=== PATIENT | female | born 1995 | race Caucasian/White ===

== ENCOUNTER 2017-01-27 14:01 | Emergency (ER) | payer OTHER ==
[~2017-01-27] VITALS: Ht 167.6 cm; Wt 70.8 kg
[~2017-01-27 14:01] MED LIST: METH40CA PO
[2017-01-27 14:03] VITALS: TEMP 36.7; Ht 167.6 cm; Wt 70.8 kg
[2017-01-27] MEDS ORDERED: SODIUM CHLORIDE 0.9% 1000ML 1,000 ML IV STA ×2 (14:27)
[2017-01-27] MEDS ORDERED: KETOROLAC TROMETHAMINE 30 MG/ML VIAL IV STA (14:27)
[2017-01-27] MEDS ORDERED: NORG1TAB23 PO (14:53)
[2017-01-27 14:57] LABS: BASO % 0.1 %; BASO ABS # 0.01 K/uL (0-0.2); COMPLETE YES; HEMATOCRIT 37.6 % (37-47); IG% 0.2 %; LYMPH % 26.2 %; MEAN CELL VOLUME 79.7 fL (80-100); MEAN CORPUSCULAR HEMOGLOBIN 25.2 pg (25-34); MEAN CORPUSCULAR HGB CONC 31.6 g/dl (32-36); MEAN PLATELET VOLUME 10.8 fL (7.4-10.4); MONO % 7.1 %; NEUT % 65.4 %; PLATELET COUNT 281 K/uL (130-400); RED BLOOD COUNT 4.72 M/uL (4.2-5.4)
[2017-01-27 15:15] LABS: ALT/SGPT 25 U/L (12-78); BLOOD UREA NITROGEN 7 mg/dl (7-18); BUN/CREATININE RATIO 8.5 (10-20); CALCIUM 8.9 mg/dl (8.5-10.1); CARBON DIOXIDE 29 mmol/L (21-32); CHLORIDE 105 mmol/L (98-107); CREATININE 0.86 mg/dl (0.60-1.20); GLUCOSE 106 mg/dl (70-99); SODIUM 137 mmol/L (136-145)
[2017-01-27 15:18] LABS: ALB/GLOB RATIO 0.8 (0.9-2); ALKALINE PHOSPHATASE 66 U/L (45-117)
[2017-01-27 15:21] LABS: URINE APPEARANCE CLEAR (CLEAR); URINE BILIRUBIN NEG (NEG); URINE COLOR YELLOW; URINE EPITHELIAL CELL AUTO >30 /lpf (0-5); URINE NITRITE NEG (NEG); URINE SPECIFIC GRAVITY 1.022 (1.000-1.030); UROBILINOGEN NEG (NEG)
[2017-01-27 15:23] LABS: MANUAL MICROSCOPIC REQUIRED? NO; REVIEW REQ? NO
--- NOTE | 2017-01-27 16:31 | DIAGNOSTIC IMAGING REPORT ---
(RENAL)RETROPERITON COMP HISTORY: 21 years-old Female acute pelvic pain. COMPARISON: CT abdomen and pelvis 03/06/2015 TECHNIQUE: Multiple real-time sonographic images of the kidneys and urinary bladder were obtained assessing grayscale appearance and color flow. FINDINGS: Right kidney measures 11.6 cm in length. There is mild to moderate dilation of the renal pelvis, Central and peripheral calyces appearing similar to comparison CT 03/06/2015. No obstructing renal calculi or mass identified. Renal parenchyma is otherwise unremarkable. Left kidney measures 11.9 cm in length. No renal calculi, hydronephrosis or focal mass. Cortical medullary differentiation is within normal limits. Urinary bladder is unremarkable with bilateral ureteral jets documented. IMPRESSION: 1. Bius-ic-[id number] right-sided hydronephrosis appears similar to comparison CT 03/06/2015 without obstructing stone or mass identified. This may be related to chronic UPJ stricturing or reflux. 2. Normal sonographic appearance of the left kidney and urinary bladder. The above report was generated using voice recognition software. It may contain grammatical, syntax or spelling errors. Electronically signed by: Juan Solares M.D. 01/27/2017 4:30 PM Dictated Date/Time: 01/27/2017 4:27 PM
--- NOTE | 2017-01-27 16:34 | DIAGNOSTIC IMAGING REPORT ---
PELVIC COMPLETE NON OB HISTORY: 21 years-old Female acute pelvic pain. COMPARISON: CT abdomen and pelvis 03/06/2015 TECHNIQUE: Multiple real-time sonographic images of the deep pelvic structures were obtained transabdominally and transvaginally assessing grayscale appearance, color and spectral flow. FINDINGS: TRANSABDOMINAL: Anteflexed uterus is seen, 8.2 x 3.4 x 4.1 cm. Endometrium is homogeneous, 0.6 cm. TRANSVAGINAL: Endometrium is homogeneous, 0.6 cm. No myometrial mass lesions are identified. Small nabothian cysts are seen. The right ovary measures 3.1 x 1.3 x 1.2 cm and is unremarkable with arterial inflow and venous outflow documented. Left ovary measures 2.4 x 1.3 x 1.0 cm and is also within normal limits with arterial inflow and venous outflow documented. There is no significant free pelvic fluid. IMPRESSION: Normal sonographic appearance of the uterus and ovaries. No evidence of ovarian torsion. The above report was generated using voice recognition software. It may contain grammatical, syntax or spelling errors. Electronically signed by: Juan Solares M.D. 01/27/2017 4:32 PM Dictated Date/Time: 01/27/2017 4:30 PM
[2017-01-27 16:56] LABS: POTASSIUM 3.8 mmol/L (3.5-5.1)
[2017-01-27] MEDS ORDERED: NORCO 5/325MG HOME PACK PO ONE (17:45)
[2017-01-27 17:53] VITALS: BP 135/82; PULSE 68; O2SAT 98
[2017-01-27] MEDS ORDERED: HYDR-5688 PO (17:58)
--- NOTE | 2017-01-27 18:00 | EMERGENCY ROOM VISIT NOTE ---
History First contact with patient: 14:18 Chief Complaint: URINARY SYMPTOMS Stated Complaint: ABD PAIN, BLADDER PAIN, HAD PYELOPLASTY History of Present Illness Patient is an otherwise healthy 21-year-old white female who presents to the emergency department accompanied by a female friend for evaluation of bilateral lower pelvic pain that started within the last 24 hours. 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 She underwent laparoscopic pyeloplasty at home in [place] last summer, recovery was unremarkable, and the patient has had no problems since the surgery. In the past 24 hours she has developed bilateral lower pelvic pain. She relates that it is a constant, dull pain that can become sharp and stabbing. She denies any radiation of the pain to her back or her flank. She notes some pelvic pressure with urination, but denies dysuria, frequency, urgency or hematuria. She denies fever or chills, no nausea or vomiting. She thought she may be getting a urinary tract infection and took a couple of over- the-counter cranberry pills. Patient has not tried any other medications for her symptoms. She does admit to being sexually active 2 days ago, and admits to drinking alcohol heavily yesterday. She is on an oral contraceptive, she got her menses as expected today. She denies any vaginal discharge or dyspareunia. No history of gynecologic issues or ovarian cysts. She presently rates her pain a 4/10. Review of Systems Review of systems as per HPI. All other systems reviewed were negative. 10 systems reviewed. Past Medical/Surgical History Medical Problems: (1) No known problems (2) Renal colic on right side (3) UPJ obstruction, congenital (4) Ureteral obstruction, right Surgical Problems: (1) Status post laparoscopic surgery Electronic medical records are reviewed and summarized as above/below. See Problem List. Family History Patient reports no known family medical history. Social History Smoking Status: Never Smoker Alcohol Use: occasionally Housing Status: lives with roommate Occupation Status: [employer] student Current/Historical Medications Scheduled Methylphenidate Hcl (Ritalin La), 40 MG PO QAM Norgestimate-Ethinyl Estradiol (Tri-Estarylla), 1 TAB PO DAILY Scheduled PRN Hydrocodone/Acetaminophen 5MG/325MG (Winfield 5MG/325MG), 1-2 TABLETS PO Q4 PRN for Pain Physical Exam Vital Signs Date Time Temp Pulse Resp B/P (MAP) Pulse Ox O2 Delivery O2 Flow Rate FiO2 01/27/17 17:53 68 18 135/82 98 Room Air 01/27/17 16:40 62 20 133/77 97 Room Air 01/27/17 14:03 36.7 65 16 153/97 98 Room Air Physical Exam CONSTITUTIONAL: Patient is a pleasant, well-appearing 21-year-old white female who is awake and alert and in mild distress due to her stated complaint. EYES: Pupils equal, round, reactive to light and accommodation. EOMs intact without nystagmus. Sclera are anicteric. ENT: Tympanic membranes intact, with normal landmarks. External canals are clear. Oral and nasopharynx are clear. Mucous membranes are moist, no lesions , tongue and gums appear normal. NECK: Supple without lymphadenopathy. CARDIOVASCULAR: Regular rate and rhythm, with normal S1 and S2, no murmur or gallop or rub is heard. No carotid bruits auscultated. No JVD. Peripheral pulses easily palpable. RESPIRATORY: Breath sounds equal and clear to auscultation without wheezes, rales, or rhonchi heard. Full and equal chest expansion without accessory muscle use or retractions. ABDOMEN: Bowel sounds are present. Well-healed surgical scars are noted. Abdomen is soft, scaphoid, nontender to percussion throughout, she is tender to palpation in the suprapubic region, right greater than left. No guarding or rebound. There is no pain over McBurney's point. No CVA tenderness. INTEGUMENTARY: No lesions or rash, normal skin turgor. LYMPH: No lymphadenopathy. Medical Decision & Procedures ER Provider Diagnostic Interpretation: PELVIC COMPLETE NON OB HISTORY: 21 years-old Female acute pelvic pain. COMPARISON: CT abdomen and pelvis 03/06/2015 TECHNIQUE: Multiple real-time sonographic images of the deep pelvic structures were obtained transabdominally and transvaginally assessing grayscale appearance, color and spectral flow. FINDINGS: TRANSABDOMINAL: Anteflexed uterus is seen, 8.2 x 3.4 x 4.1 cm. Endometrium is homogeneous, 0.6 cm. TRANSVAGINAL: Endometrium is homogeneous, 0.6 cm. No myometrial mass lesions are identified. Small nabothian cysts are seen. The right ovary measures 3.1 x 1.3 x 1.2 cm and is unremarkable with arterial inflow and venous outflow documented. Left ovary measures 2.4 x 1.3 x 1.0 cm and is also within normal limits with arterial inflow and venous outflow documented. There is no significant free pelvic fluid. IMPRESSION: Normal sonographic appearance of the uterus and ovaries. No evidence of ovarian torsion. (RENAL)RETROPERITON COMP HISTORY: 21 years-old Female acute pelvic pain. COMPARISON: CT abdomen and pelvis 03/06/2015 TECHNIQUE: Multiple real-time sonographic images of the kidneys and urinary bladder were obtained assessing grayscale appearance and color flow. FINDINGS: Right kidney measures 11.6 cm in length. There is mild to moderate dilation of the renal pelvis, Central and peripheral calyces appearing similar to comparison CT 03/06/2015. No obstructing renal calculi or mass identified. Renal parenchyma is otherwise unremarkable. Left kidney measures 11.9 cm in length. No renal calculi, hydronephrosis or focal mass. Cortical medullary differentiation is within normal limits. Urinary bladder is unremarkable with bilateral ureteral jets documented. IMPRESSION: 1. [id number] right-sided hydronephrosis appears similar to comparison CT 03/06/2015 without obstructing stone or mass identified. This may be related to chronic UPJ stricturing or reflux. 2. Normal sonographic appearance of the left kidney and urinary bladder. Laboratory Results 01/27/17 14:45 Red Blood Count 4.72, Mean Corpuscular Volume 79.7, Mean Corpuscular Hemoglobin 25.2, Mean Corpuscular Hemoglobin Concent 31.6, Mean Platelet Volume 10.8, Neutrophils (%) (Auto) 65.4, Lymphocytes (%) (Auto) 26.2, Monocytes (%) (Auto) 7.1, Eosinophils (%) (Auto) 1.0, Basophils (%) (Auto) 0.1, Neutrophils # (Auto) 5.49, Lymphocytes # (Auto) 2.20, Monocytes # (Auto) 0.60, Eosinophils # (Auto) 0.08, Basophils # (Auto) 0.01 01/27/17 14:45 01/27/17 16:33 Test 01/27/17 14:45 01/27/17 15:00 01/27/17 16:33 White Blood Count 8.40 K/uL (4.8-10.8) Red Blood Count 4.72 M/uL (4.2-5.4) Hemoglobin 11.9 g/dL (12.0-16.0) Hematocrit 37.6 % (37-47) Mean Corpuscular Volume 79.7 fL (80-100) Mean Corpuscular Hemoglobin 25.2 pg (25-34) Mean Corpuscular Hemoglobin Concent 31.6 g/dl (32-36) Platelet Count 281 K/uL (130-400) Mean Platelet Volume 10.8 fL (7.4-10.4) Neutrophils (%) (Auto) 65.4 % Lymphocytes (%) (Auto) 26.2 % Monocytes (%) (Auto) 7.1 % Eosinophils (%) (Auto) 1.0 % Basophils (%) (Auto) 0.1 % Neutrophils # (Auto) 5.49 K/uL (1.4-6.5) Lymphocytes # (Auto) 2.20 K/uL (1.2-3.4) Monocytes # (Auto) 0.60 K/uL (0.11-0.59) Eosinophils # (Auto) 0.08 K/uL (0-0.5) Basophils # (Auto) 0.01 K/uL (0-0.2) RDW Standard Deviation 41.6 fL (36.4-46.3) RDW Coefficient of Variation 14.4 % (11.5-14.5) Immature Granulocyte % (Auto) 0.2 % Immature Granulocyte # (Auto) 0.02 K/uL (0.00-0.02) Anion Gap 3.0 mmol/L (3-11) Est Creatinine Clear Calc Drug Dose 96.8 ml/min Estimated GFR () 111.9 Estimated GFR (Non- 96.6 BUN/Creatinine Ratio 8.5 (10-20) Calcium Level 8.9 mg/dl (8.5-10.1) Total Bilirubin 0.4 mg/dl (0.2-1) Alanine Aminotransferase (ALT/SGPT) 25 U/L (12-78) Alkaline Phosphatase 66 U/L (45-117) Total Protein 7.3 gm/dl (6.4-8.2) Albumin 3.3 gm/dl (3.4-5.0) Globulin 4.0 gm/dl (2.5-4.0) Albumin/Globulin Ratio 0.8 (0.9-2) Urine Color YELLOW Urine Appearance CLEAR (CLEAR) Urine pH 7.0 (4.5-7.5) Urine Specific Pearson 1.022 (1.000-1.030) Urine Protein NEG (NEG) Urine Glucose (UA) NEG (NEG) Urine Ketones NEG (NEG) Urine Occult Blood TRACE (NEG) Urine Nitrite NEG (NEG) Urine Bilirubin NEG (NEG) Urine Urobilinogen NEG (NEG) Urine Leukocyte Esterase NEG (NEG) Urine WBC (Auto) 1-5 /hpf (0-5) Urine RBC (Auto) 0-4 /hpf (0-4) Urine Hyaline Casts (Auto) 1-5 /lpf (0-5) Urine Epithelial Cells (Auto) >30 /lpf (0-5) Urine Bacteria (Auto) NEG (NEG) Urine Test NEG (NEG) Aspartate Amino Transf (AST/SGOT) 23 U/L (15-37) Medications Administered Medications (Trade) Dose Ordered Sig/Asuncion Route Start Time Stop Time Status Last Admin Dose Admin Sodium Chloride 1,000 ml @ 999 mls/hr Q1H1M STAT IV 01/27/17 14:27 01/27/17 15:27 DC 01/27/17 14:27 999 MLS/HR Sodium Chloride 1,000 ml @ 250 mls/hr Q4H STAT IV 01/27/17 14:27 01/27/17 18:26 DC 01/27/17 14:27 250 MLS/HR Ketorolac Tromethamine (Toradol Inj) 30 mg NOW STAT IV 01/27/17 14:27 01/27/17 14:35 DC 01/27/17 15:03 30 MG Acetaminophen/ Hydrocodone Bitart (Winfield 5/325mg Home Pack) 1 homepack UD ONCE PO 01/27/17 17:45 01/27/17 17:46 DC 01/27/17 18:00 1 HOMEPACK ED Course The patient was seen and assessed as above. Her old records were reviewed. IV lock was initiated and she was hydrated with normal saline solution. She was initially medicated with Toradol 30 mg IV for discomfort. CBC with differential , CMP, urinalysis and urine test were performed. Pelvic and retroperitoneal ultrasounds were obtained. Laboratory studies noted a normal white count of 8400. H&H 11.9 and 37.6. Renal function is normal at 7 and 0.86 respectively. No electrolyte abnormalities are noted. LFTs are not elevated. Urinalysis is essentially clear, trace occult blood noted, likely contamination from her menses, no RBCs on differential. She is greater than 30 epithelial cells. No bacteria, test is negative. Pelvic ultrasound was unremarkable, no evidence for significant free pelvic fluid or adnexal lesions. No evidence for ultrasound for ovarian torsion. Retroperitoneal ultrasound noted mild to moderate dilatation of the renal pelvis , which appeared consistent similar to CT scan from 2015. There is no obstructing stone or mass. This may be related to chronic UPJ stricturing or reflux. Patient history, physical exam and all laboratory and diagnostic imaging studies were reviewed with attending physician. Urinalysis is not indicative of infection, renal function is normal. She has finding on ultrasound that may indicate scarring or restriction or of the right UPJ. I did review her ultrasound findings with urology on-call doctor or Dr. Walker, who advised that she would likely need a functional scan such as an IVP to further delineate. He felt that this could be performed as an outpatient. The patient was agreeable to follow-up with local urology, as she does not have the ability to return back home to [place] this early in the semester. She was given contact information for [facility] urology. She was also given a copy of her labs and her ultrasound for follow-up purposes. She was encouraged to use ibuprofen for discomfort, but was given a prescription for Winfield that she could use for severe pain. She was educated on the worrisome signs or symptoms for which she should return to the emergency department. Differential diagnoses entertained included UTI, cystitis, pyelonephritis, renal colic, ovarian cyst, ovarian torsion, , ectopic , PID, tubo-ovarian abscess, dysmenorrhea, among others. Medical Decision See Emergency Department course. 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 [facility] Patient Instructions My [facility] Additional Instructions Hydrocodone/Acetaminophen (Winfield) 5/325 mg: Take 1-2 pills every four hours for breakthrough pain. Avoid alcohol, operating machinery or dangerous equipment, working on ladders or roofs, DRIVING, or situations where being under the influence may be dangerous. It is recommended to use an mghx-rwb-[id number] stool softener such as Colace, 100mg twice daily while taking this medication to avoid constipation. Ibuprofen(Motrin, Advil) may be used for fever or pain. Use 600mg every six hours as needed. Take with food. Avoid using more than 2400mg in a 24 hour period. Do not use 2400mg per day for more than three consecutive days without physician direction. Prolonged inappropriate use can lead to stomach upset or ulcers. This medication can be taken if you need to drive, work, or perform activities which may be dangerous when taking narcotic pain medication. Drink plenty of fluids. Continue current medications. Return to the ER for worsening abdominal or back pain, vomiting, fevers, passing out, or as needed. Follow up with [facility] for further care and evaluation. Problem Qualifiers
== END 2017-01-27 18:10 | disposition home or self-care (01) ==
LOC: C.EDB 14:02
DX: R10.2 Pelvic and perineal pain (principal); N13.0 Hydronephrosis with ureteropelvic junction obstruction

== ENCOUNTER 2017-09-29 16:16 | Emergency (ER) | payer OTHER ==
[~2017-09-29 16:16] MED LIST changes: +NORG1TAB23 PO
[2017-09-29] MEDS ORDERED: SODIUM CHLORIDE 0.9% 1000ML 1,000 ML IV STA (16:31)
[2017-09-29 17:02] LABS: BASO % 0.3 %; BASO ABS # 0.02 K/uL (0-0.2); EOS % 1.7 %; EOS ABS # 0.13 K/uL (0-0.5); HEMATOCRIT 40.6 % (37-47); HEMOGLOBIN 13.4 g/dL (12.0-16.0); IG# 0.01 K/uL (0.00-0.02); LYMPH % 24.6 %; LYMPH ABS # 1.83 K/uL (1.2-3.4); MEAN CELL VOLUME 73.6 fL (80-100); MEAN CORPUSCULAR HEMOGLOBIN 24.3 pg (25-34); MEAN PLATELET VOLUME 10.1 fL (7.4-10.4); MONO % 11.3 %; MONO ABS # 0.84 K/uL (0.11-0.59); NEUT ABS # 4.61 K/uL (1.4-6.5); PLATELET COUNT 323 K/uL (130-400); RED CELL DISTRIBUTION WIDTH CV 15.9 % (11.5-14.5); WHITE BLOOD COUNT 7.44 K/uL (4.8-10.8)
[2017-09-29 17:31] LABS: ALBUMIN 4.1 gm/dl (3.4-5.0); ALT/SGPT 30 U/L (12-78); AST/SGOT 23 U/L (15-37); BLOOD UREA NITROGEN 10 mg/dl (7-18); CALCIUM 8.7 mg/dl (8.5-10.1); CARBON DIOXIDE 28 mmol/L (21-32); CREATININE 0.87 mg/dl (0.60-1.20); GLUCOSE 86 mg/dl (70-99); LIPASE 100 U/L (73-393); POTASSIUM 3.4 mmol/L (3.5-5.1); SODIUM 136 mmol/L (136-145)
[2017-09-29 17:33] LABS: ALKALINE PHOSPHATASE 78 U/L (45-117); TOTAL PROTEIN 8.6 gm/dl (6.4-8.2)
[2017-09-29] MEDS ORDERED: KETOROLAC TROMETHAMINE 30 MG/ML VIAL IV STA (17:38)
--- NOTE | 2017-09-29 18:37 | DIAGNOSTIC IMAGING REPORT ---
ULTRASOUND KIDNEYS AND BLADDER CLINICAL HISTORY: Lower abdominal pain. COMPARISON STUDY: Abdominal CT dated 03/06/2015. Renal ultrasound dated 01/27/2017 TECHNIQUE: Real-time, grayscale, and color flow sonography of the kidneys and bladder is performed. Images are reviewed in the transverse and longitudinal planes. FINDINGS: Kidneys: The kidneys are normal in size and echotexture. The right kidney measures 10.7 cm in length and the left kidney measures 11.0 cm in length. Mild to moderate right hydroureteronephrosis is identified and was also seen on prior studies. There is no left-sided hydronephrosis. No shadowing renal calculi are identified. There is no sonographic evidence of contour deforming renal mass lesion. No perinephric fluid is identified. Bladder: The partially decompressed bladder is grossly normal in appearance. Ureteral jets were not seen. Upper abdomen: The spleen is top normal in size measuring 13.0 cm and length. IMPRESSION: 1. The kidneys are normal in size. There is no left-sided hydronephrosis. 2. There is mild to moderate right hydronephrosis. This has been seen on prior examinations and may represent a congenital UPJ type obstruction 3. No shadowing calculi are identified. 4. The bladder was partially decompressed and grossly unremarkable. Electronically signed by: Jaziel Pack M.D. 09/29/2017 6:35 PM Dictated Date/Time: 09/29/2017 6:32 PM
--- NOTE | 2017-09-29 18:38 | DIAGNOSTIC IMAGING REPORT ---
ULTRASOUND OF THE PELVIS CLINICAL HISTORY: Pelvic pain. COMPARISON STUDY: Pelvic CT dated 03/06/2015. TECHNIQUE: Real-time, grayscale, and color flow sonography of the pelvis is performed both transabdominally and endovaginally. Images are reviewed in the transverse and longitudinal planes. FINDINGS: Uterus: The uterus is normal in size and echotexture, measuring 7.1 x 2.9 x 4.1 cm. Trace fluid is noted in the endocervical canal. Endometrium: The endometrium is normal in appearance, and the endometrial stripe is normal in thickness measuring up to 0.4 cm. Ovaries: The right ovary is normal in appearance and measures 2.5 x 1.2 x 1.4 cm. The left ovary was not visualized. A small follicle is noted in the right ovary. Normal Doppler waveforms are shown within the right ovary. Pelvis: There is trace free fluid in the cul-de-sac. No concerning adnexal lesion is seen. IMPRESSION: 1. No acute sonographic abnormality is identified in the pelvis noting nonvisualization of the left ovary. 2. Trace free fluid in the cul-de-sac is likely within physiologic limits. Electronically signed by: Jaziel Pack M.D. 09/29/2017 6:37 PM Dictated Date/Time: 09/29/2017 6:35 PM
[2017-09-29 18:49] VITALS: TEMP 36.9
--- NOTE | 2017-09-29 19:43 | DIAGNOSTIC IMAGING REPORT ---
CT SCAN OF THE ABDOMEN AND PELVIS WITH IV CONTRAST CLINICAL HISTORY: Pelvic pain. COMPARISON STUDY: Pelvic ultrasound dated 09/29/2017. Abdominal CT dated 03/06/2015. TECHNIQUE: Following the IV administration of 116 cc of Optiray 320, CT scan of the abdomen and pelvis is performed from the lung bases to the proximal femora. Images are reviewed in the axial, sagittal, and coronal planes. IV contrast was administered without complication. A dose lowering technique was utilized adhering to the principles of ALARA. CT DOSE: 297.56 mGy.cm FINDINGS: Lung bases: The heart is normal in size and without pericardial effusion. The lung bases are clear. Liver: The contrast-enhanced liver is normal in size, contour, and attenuation. There is no intrahepatic biliary ductal dilatation. The hepatic veins and portal veins are patent. Gallbladder: Unremarkable. Spleen: Normal in size and attenuation. Pancreas: Unremarkable. Adrenal glands: Unremarkable. Kidneys: The contrast enhanced kidneys are normal in size and enhance symmetrically. There is mild to moderate right-sided hydronephrosis with a right-sided extrarenal pelvis. The right ureter is normal in caliber and there is no obstructing lesion identified. No hydronephrosis is seen on the left. Abdominal vasculature: The abdominal aorta is normal in course and caliber. Bowel: There is moderate colonic fecal retention. No bowel obstruction is seen. The appendix is well-visualized and normal. Peritoneum: There is no intraperitoneal free air or abdominal ascites. There is a fat-containing umbilical hernia. Lymphadenopathy: None. Pelvic viscera: The bladder, uterus, and adnexa are normal as visualized. Trace free fluid is seen in the cul-de-sac. Skeletal structures: No lytic or blastic lesions are seen. IMPRESSION: 1. There are no acute infectious or inflammatory findings in the abdomen or pelvis. 2. There is mild to moderate right-sided hydronephrosis. The right ureter is normal in caliber and no obstructing lesion/stone is seen. This likely represents a mild UPJ type obstruction and has been seen previously. 3. The kidneys enhance symmetrically. There is no left-sided hydronephrosis. 4. Trace free fluid in the cul-de-sac is likely within physiologic limits. 5. There is moderate colonic fecal retention. No bowel obstruction is seen. Electronically signed by: Jaziel Pack M.D. 09/29/2017 7:42 PM Dictated Date/Time: 09/29/2017 7:36 PM
[2017-09-29] MEDS ORDERED: OPTIRAY 320 IV PRN (19:45)
[2017-09-29] MEDS ORDERED: CEFTRIAXONE SOD INJ 1 GM ADDVIAL IV STA (20:42)
[2017-09-29] MEDS ORDERED: AZITHROMYCIN 250 MG TAB PO STA (20:42)
[2017-09-29] MEDS ORDERED: CIPROFLOXACIN 500 MG TAB PO STA (20:44)
[2017-09-29] MEDS ORDERED: CIPR-255 PO (20:47)
[2017-09-29 21:22] VITALS: BP 128/76; PULSE 78; O2SAT 98
--- NOTE | 2017-09-29 22:40 | EMERGENCY ROOM VISIT NOTE ---
History Report prepared by Melanie: Guillermo Espana Under the Supervision of: Dr. Dat Friedman D.O. First contact with patient: 16:23 Chief Complaint: OTHER COMPLAINT Stated Complaint: PAIN IN BLADDER, HAVE HAD PYELOPLASTY History of Present Illness The patient is a 21 year old female who presents to the Emergency Room with complaints of constant lower abdomen pain that began 3 days ago. The patent states that her pain is localized in her lower abdomen, over her pelvis. Her pain has improved by applying heat to the area. She also notes feeling feverish and sweaty when her pain first onset. The patient knows that she has had a pyeloplasty in the past secondary to a UPJ obstruction 2 years ago. This issue was noticed due to frequent pain in her flanks. She is currently on her menstrual cycle, but denies these symptoms feeling like menstrual cramps. She denies any vaginal discharge or urinary discomfort. She denies any other headache, change in vision, chest pain, shortness of breath, nausea, vomiting, diarrhea, and melena. She has been recently sexually active with 2 people in the past week. Source of History: patient Onset: 3 days ago Position: abdomen (over pelvis) Timing: constant Modifying Factors (Relieving): heat Associated Symptoms: + fevers, + diaphoresis, No nausea, No vomiting, No urinary symptoms Review of Systems See HPI for pertinent positives & negatives. A total of 10 systems reviewed and were otherwise negative. Past Medical & Surgical Medical Problems: (1) No known problems (2) Renal colic on right side (3) UPJ obstruction, congenital (4) Ureteral obstruction, right Surgical Problems: (1) Status post laparoscopic surgery Family History Patient reports no known family medical history. Social History Smoking Status: Never Smoker Alcohol Use: occasionally Housing Status: lives with roommate Occupation Status: [employer] student Current/Historical Medications Scheduled Ciprofloxacin Hcl (Cipro), 500 MG PO BID Methylphenidate Hcl (Ritalin La), 40 MG PO QAM Norgestimate-Ethinyl Estradiol (Tri-Estarylla), 1 TAB PO DAILY Allergies Coded Allergies: Amoxicillin (Verified Allergy, Severe, HIVES, 09/29/17) Penicillins (Verified Allergy, Severe, HIVES, 09/29/17) Physical Exam Vital Signs Date Time Temp Pulse Resp B/P (MAP) Pulse Ox O2 Delivery O2 Flow Rate FiO2 09/29/17 21:22 78 20 128/76 98 09/29/17 20:16 80 18 111/75 98 Room Air 09/29/17 18:49 36.9 09/29/17 18:11 82 16 135/77 99 Room Air 09/29/17 16:21 38.0 102 20 144/87 98 Room Air Physical Exam GENERAL: Sitting up in bed, alert, well appearing, well nourished, no distress, non-toxic EYE EXAM: normal conjunctiva. OROPHARYNX: no exudate, no erythema, lips, buccal mucosa, and tongue normal and mucous membranes are moist NECK: supple, no nuchal rigidity, no adenopathy, non-tender LUNGS: Clear to auscultation. Normal chest wall mechanics HEART: no murmurs, S1 normal and S2 normal ABDOMEN: abdomen soft, non-tender, normo-active bowel sounds, no masses, no rebound or guarding. BACK: Back is symmetrical on inspection and there is no deformity, no midline tenderness, no CVA tenderness. SKIN: no rashes and no bruising UPPER EXTREMITIES: upper extremities are grossly normal. LOWER EXTREMITIES: No pitting edema. NEURO EXAM: Normal sensorium, cranial nerves II-XII grossly intact, normal speech, no gross weakness of arms, no gross weakness of legs. PELVIC EXAM: Normal external genitalia. Normal vaginal mucosa. Scant amount of blood in vaginal vault. Cervix is close. No cervical motion tenderness. Medical Decision & Procedures ER Provider Diagnostic Interpretation: Radiology results as stated below per my review and the radiologist's interpretation: CT SCAN OF THE ABDOMEN AND PELVIS WITH IV CONTRAST CLINICAL HISTORY: Pelvic pain. COMPARISON STUDY: Pelvic ultrasound dated 09/29/2017. Abdominal CT dated 03/06/2015. TECHNIQUE: Following the IV administration of 116 cc of Optiray 320, CT scan of the abdomen and pelvis is performed from the lung bases to the proximal femora. Images are reviewed in the axial, sagittal, and coronal planes. IV contrast was administered without complication. A dose lowering technique was utilized adhering to the principles of ALARA. CT DOSE: 297.56 mGy.cm FINDINGS: Lung bases: The heart is normal in size and without pericardial effusion. The lung bases are clear. Liver: The contrast-enhanced liver is normal in size, contour, and attenuation. There is no intrahepatic biliary ductal dilatation. The hepatic veins and portal veins are patent. Gallbladder: Unremarkable. Spleen: Normal in size and attenuation. Pancreas: Unremarkable. Adrenal glands: Unremarkable. Kidneys: The contrast enhanced kidneys are normal in size and enhance symmetrically. There is mild to moderate right-sided hydronephrosis with a right-sided extrarenal pelvis. The right ureter is normal in caliber and there is no obstructing lesion identified. No hydronephrosis is seen on the left. Abdominal vasculature: The abdominal aorta is normal in course and caliber. Bowel: There is moderate colonic fecal retention. No bowel obstruction is seen. The appendix is well-visualized and normal. Peritoneum: There is no intraperitoneal free air or abdominal ascites. There is a fat-containing umbilical hernia. Lymphadenopathy: None. Pelvic viscera: The bladder, uterus, and adnexa are normal as visualized. Trace free fluid is seen in the cul-de-sac. Skeletal structures: No lytic or blastic lesions are seen. IMPRESSION: 1. There are no acute infectious or inflammatory findings in the abdomen or pelvis. 2. There is mild to moderate right-sided hydronephrosis. The right ureter is normal in caliber and no obstructing lesion/stone is seen. This likely represents a mild UPJ type obstruction and has been seen previously. 3. The kidneys enhance symmetrically. There is no left-sided hydronephrosis. 4. Trace free fluid in the cul-de-sac is likely within physiologic limits. 5. There is moderate colonic fecal retention. No bowel obstruction is seen. Electronically signed by: Jaziel Pack M.D. 09/29/2017 7:42 PM Dictated Date/Time: 09/29/2017 7:36 PM ULTRASOUND OF THE PELVIS CLINICAL HISTORY: Pelvic pain. COMPARISON STUDY: Pelvic CT dated 03/06/2015. TECHNIQUE: Real-time, grayscale, and color flow sonography of the pelvis is performed both transabdominally and endovaginally. Images are reviewed in the transverse and longitudinal planes. FINDINGS: Uterus: The uterus is normal in size and echotexture, measuring 7.1 x 2.9 x 4.1 cm. Trace fluid is noted in the endocervical canal. Endometrium: The endometrium is normal in appearance, and the endometrial stripe is normal in thickness measuring up to 0.4 cm. Ovaries: The right ovary is normal in appearance and measures 2.5 x 1.2 x 1.4 cm. The left ovary was not visualized. A small follicle is noted in the right ovary. Normal Doppler waveforms are shown within the right ovary. Pelvis: There is trace free fluid in the cul-de-sac. No concerning adnexal lesion is seen. IMPRESSION: 1. No acute sonographic abnormality is identified in the pelvis noting nonvisualization of the left ovary. 2. Trace free fluid in the cul-de-sac is likely within physiologic limits. Electronically signed by: Jaziel Pack M.D. 09/29/2017 6:37 PM Dictated Date/Time: 09/29/2017 6:35 PM ULTRASOUND OF THE PELVIS CLINICAL HISTORY: Pelvic pain. COMPARISON STUDY: Pelvic CT dated 03/06/2015. TECHNIQUE: Real-time, grayscale, and color flow sonography of the pelvis is performed both transabdominally and endovaginally. Images are reviewed in the transverse and longitudinal planes. FINDINGS: Uterus: The uterus is normal in size and echotexture, measuring 7.1 x 2.9 x 4.1 cm. Trace fluid is noted in the endocervical canal. Endometrium: The endometrium is normal in appearance, and the endometrial stripe is normal in thickness measuring up to 0.4 cm. Ovaries: The right ovary is normal in appearance and measures 2.5 x 1.2 x 1.4 cm. The left ovary was not visualized. A small follicle is noted in the right ovary. Normal Doppler waveforms are shown within the right ovary. Pelvis: There is trace free fluid in the cul-de-sac. No concerning adnexal lesion is seen. IMPRESSION: 1. No acute sonographic abnormality is identified in the pelvis noting nonvisualization of the left ovary. 2. Trace free fluid in the cul-de-sac is likely within physiologic limits. Electronically signed by: Jaziel Pack M.D. 09/29/2017 6:37 PM Dictated Date/Time: 09/29/2017 6:35 PM ULTRASOUND KIDNEYS AND BLADDER CLINICAL HISTORY: Lower abdominal pain. COMPARISON STUDY: Abdominal CT dated 03/06/2015. Renal ultrasound dated 01/27/2017 TECHNIQUE: Real-time, grayscale, and color flow sonography of the kidneys and bladder is performed. Images are reviewed in the transverse and longitudinal planes. FINDINGS: Kidneys: The kidneys are normal in size and echotexture. The right kidney measures 10.7 cm in length and the left kidney measures 11.0 cm in length. Mild to moderate right hydroureteronephrosis is identified and was also seen on prior studies. There is no left-sided hydronephrosis. No shadowing renal calculi are identified. There is no sonographic evidence of contour deforming renal mass lesion. No perinephric fluid is identified. Bladder: The partially decompressed bladder is grossly normal in appearance. Ureteral jets were not seen. Upper abdomen: The spleen is top normal in size measuring 13.0 cm and length. IMPRESSION: 1. The kidneys are normal in size. There is no left-sided hydronephrosis. 2. There is mild to moderate right hydronephrosis. This has been seen on prior examinations and may represent a congenital UPJ type obstruction 3. No shadowing calculi are identified. 4. The bladder was partially decompressed and grossly unremarkable. Electronically signed by: Jaziel Pack M.D. 09/29/2017 6:35 PM Dictated Date/Time: 09/29/2017 6:32 PM Laboratory Results 09/29/17 16:42 Red Blood Count 5.52, Mean Corpuscular Volume 73.6, Mean Corpuscular Hemoglobin 24.3, Mean Corpuscular Hemoglobin Concent 33.0, Mean Platelet Volume 10.1, Neutrophils (%) (Auto) 62.0, Lymphocytes (%) (Auto) 24.6, Monocytes (%) (Auto) 11.3, Eosinophils (%) (Auto) 1.7, Basophils (%) (Auto) 0.3, Neutrophils # (Auto ) 4.61, Lymphocytes # (Auto) 1.83, Monocytes # (Auto) 0.84, Eosinophils # (Auto ) 0.13, Basophils # (Auto) 0.02 09/29/17 16:42 Test 09/29/17 16:42 09/29/17 17:04 09/29/17 20:30 White Blood Count 7.44 K/uL (4.8-10.8) Red Blood Count 5.52 M/uL (4.2-5.4) Hemoglobin 13.4 g/dL (12.0-16.0) Hematocrit 40.6 % (37-47) Mean Corpuscular Volume 73.6 fL (80-100) Mean Corpuscular Hemoglobin 24.3 pg (25-34) Mean Corpuscular Hemoglobin Concent 33.0 g/dl (32-36) Platelet Count 323 K/uL (130-400) Mean Platelet Volume 10.1 fL (7.4-10.4) Neutrophils (%) (Auto) 62.0 % Lymphocytes (%) (Auto) 24.6 % Monocytes (%) (Auto) 11.3 % Eosinophils (%) (Auto) 1.7 % Basophils (%) (Auto) 0.3 % Neutrophils # (Auto) 4.61 K/uL (1.4-6.5) Lymphocytes # (Auto) 1.83 K/uL (1.2-3.4) Monocytes # (Auto) 0.84 K/uL (0.11-0.59) Eosinophils # (Auto) 0.13 K/uL (0-0.5) Basophils # (Auto) 0.02 K/uL (0-0.2) RDW Standard Deviation 43.0 fL (36.4-46.3) RDW Coefficient of Variation 15.9 % (11.5-14.5) Immature Granulocyte % (Auto) 0.1 % Immature Granulocyte # (Auto) 0.01 K/uL (0.00-0.02) Anion Gap 10.0 mmol/L (3-11) Estimated GFR () 110.4 Estimated GFR (Non- 95.2 BUN/Creatinine Ratio 11.6 (10-20) Calcium Level 8.7 mg/dl (8.5-10.1) Total Bilirubin 0.3 mg/dl (0.2-1) Direct Bilirubin 0.1 mg/dl (0-0.2) Aspartate Amino Transf (AST/SGOT) 23 U/L (15-37) Alanine Aminotransferase (ALT/SGPT) 30 U/L (12-78) Alkaline Phosphatase 78 U/L (45-117) Total Protein 8.6 gm/dl (6.4-8.2) Albumin 4.1 gm/dl (3.4-5.0) Lipase 100 U/L (73-393) Urine Color ORANGE Urine Appearance CLOUDY (CLEAR) Urine pH 6.5 (4.5-7.5) Urine Specific [place] 1.025 (1.000-1.030) Urine Protein NEG (NEG) Urine Glucose (UA) NEG (NEG) Urine Ketones NEG (NEG) Urine Occult Blood 3+ (NEG) Urine Nitrite NEG (NEG) Urine Bilirubin NEG (NEG) Urine Urobilinogen NEG (NEG) Urine Leukocyte Esterase TRACE (NEG) Urine WBC (Auto) 1-5 /hpf (0-5) Urine RBC (Auto) >30 /hpf (0-4) Urine Hyaline Casts (Auto) 1-5 /lpf (0-5) Urine Epithelial Cells (Auto) >30 /lpf (0-5) Urine Bacteria (Auto) NEG (NEG) Urine Test NEG (NEG) Date/Time Source Procedure Growth Status 09/29/17 20:30 Cervix Swab Trichomonas Preparation - Final Complete Laboratory results per my review. Medications Administered Medications (Trade) Dose Ordered Sig/[place] Route Start Time Stop Time Status Last Admin Dose Admin Sodium Chloride 1,000 ml @ 999 mls/hr Q1H1M STAT IV 09/29/17 16:31 09/29/17 17:31 DC 09/29/17 16:45 999 MLS/HR Ketorolac Tromethamine (Toradol Inj) 30 mg NOW STAT IV 09/29/17 17:38 09/29/17 17:39 DC 09/29/17 18:11 30 MG Ceftriaxone Sodium (Rocephin Inj) 1 gm NOW STAT IV 09/29/17 20:42 09/29/17 20:44 DC 09/29/17 20:54 1 GM Azithromycin (Zithromax Tab) 1,000 mg NOW STAT PO 09/29/17 20:42 09/29/17 20:44 DC 09/29/17 20:52 1,000 MG Ciprofloxacin (Cipro Tab) 500 mg NOW STAT PO 09/29/17 20:44 09/29/17 20:45 DC 09/29/17 20:53 500 MG ED Course ED COURSE: Vital signs were reviewed and showed febrile and tachycardic. The patients medical record was reviewed The above diagnostic studies were performed and reviewed. ED treatments and interventions as stated above. 1625: The patient was evaluated in room C10. A complete history and physical examination was performed. 1631: Ordered Sodium Chloride 1000 mL @ 999 mL/hr IV. 1738: Ordered Toradol 30 mg IV. 1820: I checked on the patient at this time. She is doing well. 1956: I discussed the case with Dr. Jenkins - Urology. He suggests that we offer the patient an admission, if now follow-up closely as an outpatient. 2041: Ordered Azithromycin 1000 mg PO, Rocephin 1 gm IV. 2043: Ordered Ciprofloxacin 500 mg PO. 2050: I performed pelvic exam 2102: Upon reevaluation, the patient is resting in bed.I discussed my findings with the patient and she understands and agrees with the treatment plan. Based on the patients age, coexisting illnesses, exam and lab findings the decision to treat as an outpatient was made. The patient remained stable while under my care. The patient appeared well at the time of discharge. Medical Decision Differential diagnoses includes but is not limited to gastritis, peptic ulcer disease, GERD, gallbladder disease, pancreatitis, small bowel obstruction, acute coronary syndrome, pericarditis, ischemic bowel, irritable bowel disease, irritable bowel syndrome, appendicitis, diverticulitis, malignancy, hernia, urinary tract infection, torsion, /ectopic , perforation, trauma, infectious. Patient is a 21-year-old female who presents the ER for lower abdominal pain with a past medical history of a pyeloplasty 2 years ago. Patient notes that the pain feels fairly similar. She is currently on her menstrual period. Abdominal exam is benign. CBC along with BMP, LFTs, bilirubin lipase is unremarkable. UA with a small amount of blood and was contaminated with epithelial cells. No white cells or nitrates to suggest infection. was negative. Pelvic was performed and was benign. Cultures were sent. Ultrasound did show right-sided hydronephrosis. CT abdomen pelvis shows no acute pathology. Patient did have a fever initially at 38. No leukocytosis. She is sexually active and I did elect to treat her for STDs with Rocephin and azithromycin. I discussed the case with urology. They note that since the pyeloplasty was performed when she was older the hydronephrosis may never completely resolved. She will need a functioning study done at this time if she was comfortable and otherwise well-appearing she could go home. They recommended Cipro. I updated patient at bedside. She was comfortable with this. She was discharged to follow-up with urology early next week on Cipro. Discussed with Pt concerning signs and symptoms to watch out for. Pt was instructed to follow up with their PCP and discussed with the patient their option to return to the ED at anytime for persistent or worsening symptoms. The appropriate anticipatory guidance and out-patient management, including indications for return to the emergency department, were explained at length to the patient and understood. Medication Reconcilliation Current Medication List: was personally reviewed by me Blood Pressure Screening Patient's blood pressure: Elevated blood pressure Blood pressure disposition: Elevated BP felt to be situational Impression Primary Impression: Abdominal pain Additional Impressions: Hydronephrosis Fever Scribe Attestation The scribe's documentation has been prepared under my direction and personally reviewed by me in its entirety. I confirm that the note above accurately reflects all work, treatment, procedures, and medical decision making performed by me. Departure Information Dispostion Home / Self-Care Prescriptions Ciprofloxacin Hcl (CIPRO) 500 Mg Tab 500 MG PO BID, #14 TAB Prov: Dat Friedman, DO 09/29/17 Referrals [facility] (PCP) Forms HOME CARE DOCUMENTATION FORM, IMPORTANT VISIT INFORMATION, WORK / SCHOOL INSTRUCTIONS Patient Instructions My [facility] Additional Instructions Please follow up with your primary care doctor or if you are a student, [facility] with in the next 24 hours. Any worsening of your symptoms, please return to the ED immediately. This includes any fevers greater than 100.4, worsening pain, chest pain, shortness breath, persistent nausea, vomiting, unable to eat or drink, or any other concerning signs or symptoms from your standpoint. Please take antibiotics as prescribed. Please call urology first thing Saturday morning to follow-up as an outpatient. Any persistent fevers, vomiting, shaking chills or worsening pain should return to the ER immediately. Problem Qualifiers Primary Impression: Abdominal pain Abdominal location: unspecified location Qualified Codes: R10.9 - Unspecified abdominal pain Additional Impressions: Hydronephrosis Hydronephrosis type: unspecified Qualified Codes: N13.30 - Unspecified hydronephrosis Fever Fever type: unspecified Qualified Codes: R50.9 - Fever, unspecified
--- NOTE | 2017-10-02 14:25 | Pharmacy Progress Note ---
ED Pharmacist Culture FollowUp Date of Service: October 02, 2017. Patient was seen in ER on 09/29 for c/o lower abd pain x 3 days and feeling "feverish" and "sweaty" Patient does have a h/o pyeloplasty secondary to congenital UPJ obstruction 2 yrs ago. She denied urinary discomfort, denied vaginal discharge. PE reviewed on provider's note: negative abdomen, no CVA tenderness, negative pelvic. UA not remarkable for infxn: negative nitrite, trace LE, 1-5WBC, no bacteria No urine cx performed WBC 7.4 CT abd/pelvis: mild-mod R hydronephrosis, no stone or obstructing lesion Discharged on Cipro and was to f/u w/ Urology. Pt treated for STI's (Rocephin IV + Zith PO in ED) however STI testing negative (neg chlamydia, neg gonorrhea, neg trich) Female genital cx performed and results reported today: many MSSA, moderate Grp B strep, rare clara albicans. Reviewed case w/ Dr Ambrose. Plan is to place patient on Keflex 500mg PO QID x 7 days, stop Cipro and have patient f/u with OBGYN. Contacted patient via phone today. She states some of her symptoms have improved but not all. She was seen by urology yesterday and they recommend she cont abx therapy. I explained plan to start Keflex, stop Cipro and f/u w/ OBGYN. She requested Rx be called to [facility] [phone] which I did do for her.
== END 2017-09-29 21:23 | disposition home or self-care (01) ==
LOC: C.EDB 16:19 → C.EDC 21:23
DX: N13.30 Unspecified hydronephrosis (principal); R50.9 Fever, unspecified; Z88.0 Allergy status to penicillin; Z98.890 Other specified postprocedural states